=== PATIENT | female | born 1995 ===

== ENCOUNTER → 2019-05-01 | Outpatient (CLI) | payer OTHER | END | disposition home or self-care (01) | LOC: PRENATAL 08:56 | DX: O98.912 Unspecified maternal infectious and parasitic disease complicating pregnancy, second trimester (principal); O99.212 Obesity complicating pregnancy, second trimester ==

== ENCOUNTER 2019-08-09 12:30 | Inpatient (IN) | payer OTHER ==
[~2019-08-09] VITALS: Ht 154.9 cm; Wt 88.0 kg
[2019-08-23] MEDS ORDERED: PRENATAL TABLE1 EAC4 PO (11:26)
[2019-08-25] MEDS ORDERED: VISTARIL50 MG PO (08:07)
== END 2019-08-25 14:41 | disposition home or self-care (01) | DRG 807 ==
LOC: LDR 08-23 05:45 → OB/GYN 08-23 05:45
PROVIDERS: ADMIT Specialist
PROC: 10E0XZZ Delivery of Products of Conception, External Approach (ICD-10-PCS; principal; 2019-08-23)
PROC: 10907ZC Drainage of Amniotic Fluid, Therapeutic from Products of Conception, Via Natural or Artificial Opening (ICD-10-PCS; 2019-08-23)
PROC: 3E033VJ Introduction of Other Hormone into Peripheral Vein, Percutaneous Approach (ICD-10-PCS; 2019-08-23)
PROC: 4A1HXCZ Monitoring of Products of Conception, Cardiac Rate, External Approach (ICD-10-PCS; 2019-08-23)
DX: O80 Encounter for full-term uncomplicated delivery (principal); Z37.0 Single live birth; Z3A.39 39 weeks gestation of pregnancy